=== PATIENT | female | born 1985 | race Caucasian/White ===

== ENCOUNTER 2016-05-12 23:50 | Emergency (ER) | payer SELFPAY ==
--- NOTE | 2016-05-19 14:34 | ER ---
ADMIT: 05/12/2016 RM/LOC: ER [facility] MR#: [id number] [place], [place] [id number] ROSARIO KEVIN [address] [place] [id number] Emergency Room Report SEX: F AGE: 31 : 1985 DATE: 05/12/2016 ADDENDUM: HISTORY OF PRESENT ILLNESS: The patient comes into the ER because for the last 3 days, she has had severe cough, fever, body aching, headache, and congestion. She states that her chest hurts when she coughs. She has had no vomiting or diarrhea. PHYSICAL EXAMINATION: GENERAL: She is alert. LUNGS: Clear. VITAL SIGNS: Her O2 saturation is within normal range. DIAGNOSES: Most likely viral syndrome, possibly influenza. PLAN: I wrote a prescription for Phenergan with codeine. We will have her rest, push fluids. Follow up with her primary as needed. Please see my T- sheet. LEW Elam / Keyur Pitts MD / maudel JOB #: [id number] CC: Keyur Pitts MD, Attending Physician Lonnie Zelaya MD, Family Physician
== END 2016-05-13 00:55 | disposition home or self-care (01) ==
LOC: ER 23:50
DX: B34.9 Viral infection, unspecified (principal); G43.909 Migraine, unspecified, not intractable, without status migrainosus; F17.210 Nicotine dependence, cigarettes, uncomplicated; Z90.710 Acquired absence of both cervix and uterus; Z79.899 Other long term (current) drug therapy